=== PATIENT | male | born 1950 | race Caucasian/White ===

== ENCOUNTER 2022-06-15 22:02 | Observation (INO) | payer MEDICARE ==
[~2022-06-15] VITALS: Ht 177.8 cm; Wt 72.0 kg
[2022-06-15] MEDS ORDERED: PROAIR HFA0.09 MG/AC (23:06)
[2022-06-15] MEDS ORDERED: COZAAR 50MG50 MG/TAB PO (23:08)
[2022-06-15] MEDS ORDERED: FLORINEF ACETA0.1 MG PO (23:08)
[2022-06-15] MEDS ORDERED: KLONOPIN 0.5MG0.5 MG PO (23:09)
[2022-06-15] MEDS ORDERED: ZOFRAN ODT4 MG PO (23:10)
[2022-06-15] MEDS ORDERED: TENORMIN100 MG PO (23:12)
[2022-06-15] MEDS ORDERED: VENTOLIN0.09 MG IH (23:12)
[2022-06-15] MEDS ORDERED: FLEXERIL 1010 MG/TAB PO (23:15)
[2022-06-15] MEDS ORDERED: ASPIRIN E.C. 8181 MG PO (23:15)
[2022-06-15] MEDS ORDERED: ZANTAC-360 (FAM20 MG PO ×2 (23:17→23:18)
[2022-06-15] MEDS ORDERED: FLOVENT DI100 MCG/Ac IH (23:21)
--- NOTE | 2022-06-15 23:30 | NUR ---
2250 PT ARRIVED TO ROOM 356 WITH EMT FROM OUTSIDE FACILITY. PTS VITAL SIGNS TAKEN, ADMISSION COMPLETED AT THIS TIME. PT DENIES ANY DRUG USE, PT REQUESTING TO BE ABLE TO EAT SOMETHING, RN EDUCATED PATIENT THAT WE WOULD HAVE TO WAIT FOR ORDERS. PT WENT OVER MEDICATIONS WITH RN PT WAS UNABLE TO REMEMBER SOME NAMES OF HIS MEDICATIONS AND ALSO COULDNT REMEMBER WHEN THE LAST TIME HE TOOK SOME OF THOSE MEDICATIONS.
[2022-06-15 23:33] VITALS: BP 186/88; PULSE 76; TEMP 98.8
[2022-06-16 04:10] VITALS: BP 163/91; PULSE 77; TEMP 97.8
--- NOTE | 2022-06-16 06:42 | NUR ---
9420 CARDIOLOGY CONSULT CALLED
[2022-06-16 07:08] LABS: CALCIUM 9.6 mg/dL (8.4-10.2); CREATININE, serum 0.87 mg/dL (0.72-1.25); MAGNESIUM 1.9 mg/dL (1.6-2.6); POTASSIUM 3.7 mmol/L (3.5-4.5)
[2022-06-16 07:14] VITALS: BP 177/83; PULSE 73; TEMP 97.5
[2022-06-16 07:34] LABS: BASO # 0.1 K/mm3 (0.0-0.2); BASO % 1.4 % (0.0-2.0); EOS # 0.4 K/mm3 (0.0-0.7); EOS % 3.6 % (0.0-4.0); GRAN # 6.3 K/mm3 (1.4-6.5); GRAN % 61.1 % (42.2-75.2); HEMOGLOBIN 15.8 g/dl (13.5-18.0); LYMPH # 2.5 K/mm3 (1.2-3.4); LYMPH % 24.4 % (20.0-51.0); MEAN CELL VOLUME 90 fl (80.0-100.0); MEAN CORPUSCULAR HEMOGLOBIN 32 pg (27-31); MEAN CORPUSCULAR HGB CONC 35 g/dl (33.0-37.0); MEAN PLATELET VOLUME 9.6 fl (7.4-10.4); MONO # 0.9 K/mm3 (0.1-0.6); MONO % 9.1 % (1.7-9.3); PLATELET COUNT 325 K/mm3 (130-400); RED BLOOD COUNT 5.01 M/mm3 (4.20-5.60); REDCELL DISTRIBUTION WIDTH-CV 13.4 % (11.5-14.5)
[2022-06-16 09:23] LABS: CHOLESTEROL RISK RATIO 7.6
[2022-06-16] MEDS ORDERED: PLAVIX 75MG TAB75 MG PO (09:56)
[2022-06-16] MEDS ORDERED: LIPITOR 40MG TA40 MG PO (09:56)
[2022-06-16] MEDS ORDERED: NITROSTAT0.4 MG/TAB SL (09:56)
--- NOTE | 2022-06-16 10:07 | NUR ---
Pt A&O x 4, denies SOB or CP at this time. Slightly hypertensive, NPO d/c and pt given PO meds, including cardiac. IV continues to LFA - SL. Applied nicotine patch to R shoulder, instructed pt to remove upon d/c if planning to smoke. Pt acknowledges understanding. Pt has asked several times when he is going home. Is attempting to contact daughter for transport.
--- NOTE | 2022-06-16 10:42 | NUR ---
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 Patient doing well and is determined to get well. Mac Artist will keep Ever in her prayers and wished him God's blessings.
--- NOTE | 2022-06-16 11:00 | NUR ---
Discussed d/c instructions with pt and daughter. Both acknowledge understanding. Pt reports that he will reschedule cardiology appt on 06/28/22 as he already has EGD/Colon scheduled for that day in [place]. IV d/c complete/intact. Pt ambulates from facility escorted by staff.
--- NOTE | 2022-06-16 11:13 | NUR ---
Real Time Operator met with Patient at bedside to conduct Care Managment assessment and discuss discharge planning. Patient reported that he lives at home with his in [place], [place], is established with PCP Dr. Shepherd, and denies the use of O2, DME, and home health services prior to admission. PAtient reports to be independent with ADL/IADLS. PAtient reports to be able to obtain transportation when discharged.
== END 2022-06-16 11:00 | disposition home or self-care (01) ==
LOC: MEDICAL 22:02
PROVIDERS: Nurse Practitioner; Student in an Organized Health Care Education/Training Program; ADMIT Student in an Organized Health Care Education/Training Program
DX: R07.9 Chest pain, unspecified (principal); R10.13 Epigastric pain; I10 Essential (primary) hypertension; J44.9 Chronic obstructive pulmonary disease, unspecified; K21.9 Gastro-esophageal reflux disease without esophagitis; I73.9 Peripheral vascular disease, unspecified; F41.9 Anxiety disorder, unspecified; E78.5 Hyperlipidemia, unspecified; F17.210 Nicotine dependence, cigarettes, uncomplicated; Z95.820 Peripheral vascular angioplasty status with implants and grafts; Z79.899 Other long term (current) drug therapy; Z79.82 Long term (current) use of aspirin; Z79.51 Long term (current) use of inhaled steroids
CPT/HCPCS: G0378; G0379; J1650